=== PATIENT | male | born 1945 | race Caucasian/White ===

== ENCOUNTER 2019-05-02 16:01 | Emergency (ER) | payer MEDICARE, OTHER, SELFPAY ==
[2019-05-02] VITALS (10 sets, daily range): BP systolic 89–107; BP diastolic 59–72; PULSE 52–76; RESP 12–16; TEMP 36.7; O2SAT 90–99; BMI 28.8
--- NOTE | 2019-05-02 16:13 | ED_ITS ---
HPI - Chest Pain General: Chief Complaint: Chest Pain Stated Complaint: Chest Pain Time Seen by Provider: 05/02/19 16:12 PFSH ED PFSH: Statuses (acute, chronic, etc) shown below reflect problem list status as previously entered and may not be historically accurate Social History Smoking and tobacco status: former smoker Course Vital Signs: Vital signs: Vital Signs Temperature 98.0 F 05/02/19 15:52 Pulse Rate 63 05/02/19 16:04 Respiratory Rate 15 05/02/19 16:04 Blood Pressure 98/59 05/02/19 16:04 Pulse Oximetry 98 05/02/19 16:04 Coding Level of Care Code ED Physician/Allergy/Immunology for Luna Hoffman
--- NOTE | 2019-05-02 16:13 | ED_ITS ---
Entered by Kathie Humphreys, acting as scribe for HPI - Chest Pain General: Chief Complaint: Chest Pain Stated Complaint: Chest Pain Time Seen by Provider: 05/02/19 16:12 Source: patient, family and EMS Mode of arrival: EMS Limitations: physical limitation (difficulty walking that is chronic per spouse) History of Present Illness: HPI narrative: 74 yo male presents with chest pain. pt states this started 2-3 days ago. pt states he has a cardiac history so he wanted to get it checked out. pt denies any other symptoms at this time. pt seens Dr. Emmanuel the Cardiology in [facility] and Oncology also in [facility]. MD complaint: chest pain Onset (ago): day(s) (2 days ago) Timing of current episode: constant and still present Prior episodes: Yes Onset: during rest Pain location: substernal Pain radiation: none Severity: mild Relieving factors: nothing Exacerbating factors: nothing Associated symptoms: Reports no associated symptoms; Deny abdominal pain, dyspnea, fever(s), nausea or vomiting Treatment prior to arrival: none Review of Systems Const: Denies: fever, chills, body aches, fatigue, malaise or night sweats Eyes: Denies: change in vision or blurry vision ENMT: Denies: throat pain, oral sores/lesions, dental pain, nasal discharge or nasal congestion Resp: Denies: shortness of breath, productive cough, non-productive cough or wheezing GI: Denies: abdominal pain, nausea, vomiting, vomiting blood, coffee grounds in vomit, difficulty swallowing, heartburn/indigestion, diarrhea, constipation, cramping, blood in stool or black tarry stool : Denies: flank pain, difficulty urinating, painful urination, urinary frequency, urinary urgency, urinary incontinence or blood in urine Musc: Denies: neck pain, back pain, extremity pain, extremity swelling, joint pain or joint swelling Skin/Breast: Denies: rash, itching or redness Neuro: Denies: headache, numbness in extremities, weakness in extremities, changes in sensation, lack of coordination, difficulty walking, frequent falls, dizziness, vertigo or confusion Psych: Denies: anxiety, depression, loss of interest, visual hallucinations, auditory hallucinations, suicidal ideation or homicidal ideation Endo: Denies: excessive urination, excessive thirst, tired all the time or cold intolerance Mynor/Lymph: Denies: easy bruising, easy bleeding, petechiae, enlarged lymph nodes or tender lymph nodes PFSH ED PFSH: Statuses (acute, chronic, etc) shown below reflect problem list status as previously entered and may not be historically accurate Social History Smoking and tobacco status: former smoker Physical Exam Const: COMMON NORMALS: average body habitus, oriented x3 and alert GENERAL APPEARANCE: cooperative, comfortable, well kempt and well developed NUTRITIONAL APPEARANCE: obese ORIENTATION/CONSCIOUSNESS: Yes awake, Yes oriented to person and Yes oriented to place HENMT: COMMON NORMALS: normocephalic, head/scalp atraumatic, EAC's normal, TM's normal bilaterally, external nose normal, moist oral mucous membranes and oropharynx normal HEAD & SCALP: normocephalic and atraumatic NOSE: external nose normal EXTERNAL AUDITORY CANAL: EAC's normal TYMPANIC MEMBRANE: TM's normal bilaterally MOUTH: oral and palatal mucosa normal, lip normal and tongue normal THROAT: posterior oropharynx normal and tonsils normal Eye: COMMON NORMALS: PERRL, EOMs intact bilaterally, conjunctivae normal and no scleral icterus CONJUNCTIVA: Yes conjunctivae normal PUPIL: Yes PERRL Neck/C-Spine: COMMON NORMALS: full ROM, no lymphadenopathy, supple, no meningeal signs and thyroid normal THYROID: thyroid normal and asymmetrical Lymph: LYMPHATIC: no lymphadenopathy noted Resp: COMMON NORMALS: normal respiratory effort, no retractions, no use of accessory muscles and clear to auscultation bilaterally AUSCULTATION: clear to auscultation bilaterally GI: COMMON NORMALS: normal to inspection, nondistended, normoactive bowel sounds, soft to palpation and no hepatosplenomegaly PALPATION: Yes soft and Yes no hepatosplenomegaly : COMMON NORMALS: Yes no CVA tenderness BLADDER/KIDNEY EXAM: Yes no CVA tenderness Back/Pelvis: COMMON NORMALS: no CVA tenderness LUMBAR SPINE/LOWER BACK: Yes normal to inspection Extremity: COMMON NORMALS: no clubbing, cyanosis or edema, no calf tenderness and no pedal edema Neuro: COMMON NORMALS: oriented x3 SENSORIUM/ORIENTATION: Yes alert, Yes oriented to person and Yes oriented to place MENINGEAL SIGNS: Yes no meningeal signs Psych: APPEARANCE: Yes well kempt Skin: COMMON NORMALS: no rashes or lesions noted and skin turgor normal GENERAL SKIN EXAM: no rashes or lesions noted and turgor normal Course ED course: Transferred to [place] for continuity of care. Additionally there is no available beds at our facility. Discussed with patient they will receive the patient in the emergency room at [facility]. Patient transferred due to lack of beds here and for continuity of care he does have a troponin greater than 100 in the setting of patient with known coronary artery disease and this must be further evaluated. Vital Signs: Vital signs: Vital Signs Temperature 98.0 F 05/02/19 15:52 Pulse Rate 52 L 05/02/19 23:00 Respiratory Rate 12 05/02/19 23:00 Blood Pressure 107/69 05/02/19 23:00 Pulse Oximetry 99 05/02/19 23:00 MDM - Chest Pain Lab Data: Attestation: I reviewed the patient's lab results. Labs: Lab Results 05/02/19 05/02/19 05/02/19 Range/Units 16:45 16:45 16:45 WBC 5.9 (4.0-10.0) 10^3/ uL RBC 3.84 L (4.1-5.3) 10^6/u L Hgb 12.0 (11.7-16.6) g/dL Hct 38.1 L (42.0-52.0) % MCV 99.2 H (80-94) fL MCH 31.3 (28.0-34.0) pg MCHC 31.5 (30.0-36.0) g/dL RDW 16.5 H (12.1-15.1) % Plt Count 90 L (130-400) 10^3/c mm MPV 10.7 H (7.4-10.4) fL Neut % (Auto) 42.4 % Lymph % (Auto) 45.3 % [place] % (Auto) 5.0 % Eos % (Auto) 5.5 % Baso % (Auto) 1.5 % Neut # (Auto) 2.5 (1.8-7.7) 10^3/u L Lymph # (Auto) 2.7 (0.8-4.8) 10^3/u L [place] # (Auto) 0.3 (0.2-0.9) 10^3/u L Eos # (Auto) 0.3 (0.0-0.8) 10^3/u L Baso # (Auto) 0.1 (0.0-0.1) 10^3/u L Nucleated RBC % (a uto) 0 % Nucleated RBCs # 0.0 /100WBC PT 17.90 H (10.5-13.3) SECO NDS INR 1.43 H (0.8-1.2) APTT 41.5 H (23.9-36.7) SECO NDS Sodium 136 (136-145) mmol/L Potassium 3.8 (3.5-5.1) mmol/L Chloride 99 (98-107) mmol/L Carbon Dioxide 27 (22-29) mmol/L Anion Gap 13.8 (5-19) BUN 22 (8-23) mg/dL Creatinine 2.6 H (0.7-1.2) mg/dL Glucose 124 H (65-115) mg/dL Lactic Acid (Sepsi s) (0.5-2.2) mmol/L Calcium 9.7 (8.5-10.5) mg/dL Total Bilirubin 0.6 (0.15-1.2) mg/dL AST 26 (0-40) U/L ALT 12 (0-41) U/L Alkaline Phosphata se 104 (40-130) IU/L Troponin I 6 Hour (0-15) ng/L Troponin I Hi Sens Del (0-12) ng/L Troponin T Baselin e (0-15) ng/mL Troponin T 120 Min wrangell (0-15) ng/mL Delta Troponin T (0-10) ABS# Total Protein 6.1 L (6.6-8.7) g/dL Albumin 3.6 (3.5-5.2) g/dL Globulin 2.5 (1.3-4.6) g/dL Urine Color (Yellow) Urine Appearance (CLEAR) Urine pH (5-7) Ur Specific Gravit y (1.005-1.030) Urine Protein (Negative) Urine Glucose (UA) (Normal) Urine Ketones (Negative) Urine Occult Blood (Negative) Urine Nitrate (Negative) Urine Bilirubin (NEGATIVE) Urine Urobilinogen (Negative) mg/dL Ur Leukocyte Esperanza ase (Negative) 05/02/19 05/02/19 05/02/19 Range/Units 16:45 16:58 19:05 WBC (4.0-10.0) 10^3/ uL RBC (4.1-5.3) 10^6/u L Hgb (11.7-16.6) g/dL Hct (42.0-52.0) % MCV (80-94) fL MCH (28.0-34.0) pg MCHC (30.0-36.0) g/dL RDW (12.1-15.1) % Plt Count (130-400) 10^3/c mm MPV (7.4-10.4) fL Neut % (Auto) % Lymph % (Auto) % [place] % (Auto) % Eos % (Auto) % Baso % (Auto) % Neut # (Auto) (1.8-7.7) 10^3/u L Lymph # (Auto) (0.8-4.8) 10^3/u L [place] # (Auto) (0.2-0.9) 10^3/u L Eos # (Auto) (0.0-0.8) 10^3/u L Baso # (Auto) (0.0-0.1) 10^3/u L Nucleated RBC % (a uto) % Nucleated RBCs # /100WBC PT (10.5-13.3) SECO NDS INR (0.8-1.2) APTT (23.9-36.7) SECO NDS Sodium (136-145) mmol/L Potassium (3.5-5.1) mmol/L Chloride (98-107) mmol/L Carbon Dioxide (22-29) mmol/L Anion Gap (5-19) BUN (8-23) mg/dL Creatinine (0.7-1.2) mg/dL Glucose (65-115) mg/dL Lactic Acid (Sepsi s) (0.5-2.2) mmol/L Calcium (8.5-10.5) mg/dL Total Bilirubin (0.15-1.2) mg/dL AST (0-40) U/L ALT (0-41) U/L Alkaline Phosphata se (40-130) IU/L Troponin I 6 Hour (0-15) ng/L Troponin I Hi Sens Del (0-12) ng/L Troponin T Baselin e 126 H* (0-15) ng/mL Troponin T 120 Min wrangell 103.70 H (0-15) ng/mL Delta Troponin T -22.30 L (0-10) ABS# Total Protein (6.6-8.7) g/dL Albumin (3.5-5.2) g/dL Globulin (1.3-4.6) g/dL Urine Color Yellow (Yellow) Urine Appearance Clear (CLEAR) Urine pH 6 (5-7) Ur Specific Gravit y 1.010 (1.005-1.030) Urine Protein Neg (Negative) Urine Glucose (UA) Norm (Normal) Urine Ketones Negative (Negative) Urine Occult Blood Neg (Negative) Urine Nitrate Negative (Negative) Urine Bilirubin Neg (NEGATIVE) Urine Urobilinogen Norm (Negative) mg/dL Ur Leukocyte Esperanza ase Negative (Negative) 05/02/19 05/02/19 Range/Units 20:46 22:57 WBC (4.0-10.0) 10^3/ uL RBC (4.1-5.3) 10^6/u L Hgb (11.7-16.6) g/dL Hct (42.0-52.0) % MCV (80-94) fL MCH (28.0-34.0) pg MCHC (30.0-36.0) g/dL RDW (12.1-15.1) % Plt Count (130-400) 10^3/c mm MPV (7.4-10.4) fL Neut % (Auto) % Lymph % (Auto) % [place] % (Auto) % Eos % (Auto) % Baso % (Auto) % Neut # (Auto) (1.8-7.7) 10^3/u L Lymph # (Auto) (0.8-4.8) 10^3/u L [place] # (Auto) (0.2-0.9) 10^3/u L Eos # (Auto) (0.0-0.8) 10^3/u L Baso # (Auto) (0.0-0.1) 10^3/u L Nucleated RBC % (a uto) % Nucleated RBCs # /100WBC PT (10.5-13.3) SECO NDS INR (0.8-1.2) APTT (23.9-36.7) SECO NDS Sodium (136-145) mmol/L Potassium (3.5-5.1) mmol/L Chloride (98-107) mmol/L Carbon Dioxide (22-29) mmol/L Anion Gap (5-19) BUN (8-23) mg/dL Creatinine (0.7-1.2) mg/dL Glucose (65-115) mg/dL Lactic Acid (Sepsi s) 1.1 (0.5-2.2) mmol/L Calcium (8.5-10.5) mg/dL Total Bilirubin (0.15-1.2) mg/dL AST (0-40) U/L ALT (0-41) U/L Alkaline Phosphata se (40-130) IU/L Troponin I 6 Hour 111.5 H (0-15) ng/L Troponin I Hi Sens Del -14.5 L (0-12) ng/L Troponin T Baselin e (0-15) ng/mL Troponin T 120 Min wrangell (0-15) ng/mL Delta Troponin T (0-10) ABS# Total Protein (6.6-8.7) g/dL Albumin (3.5-5.2) g/dL Globulin (1.3-4.6) g/dL Urine Color (Yellow) Urine Appearance (CLEAR) Urine pH (5-7) Ur Specific Gravit y (1.005-1.030) Urine Protein (Negative) Urine Glucose (UA) (Normal) Urine Ketones (Negative) Urine Occult Blood (Negative) Urine Nitrate (Negative) Urine Bilirubin (NEGATIVE) Urine Urobilinogen (Negative) mg/dL Ur Leukocyte Esperanza ase (Negative) Discharge Plan Discharge Patient Disposition: Transfer to ED Clinical Impression: Non-ST elevation [place] (NSTEMI), Coronary artery disease Interventions: ED Discharge Assessment Last Done: 05/02/19 23:43 Discharge Date/Time: 05/02/19 23:44 Coding Level of Care Code ED Physicist Astrophysics for Chg Fwd Exam Problem Focused The documentation recorded by the Petr garcia Bridget Annette, accurately reflects the service I personally performed and the decisions made by Wili burris Curtis L,
--- NOTE | 2019-05-02 16:31 | CTR_ITS ---
PROCEDURE INFORMATION: Exam: CT Head Without Contrast Exam date and time: 05/02/2019 5:38 PM Age: 74 years old Clinical indication: Dizziness; Patient HX: HX lung cancer TECHNIQUE: Imaging protocol: Computed tomography of the head without contrast. Total DLP: 850.82 mGy-cm Radiation optimization: All CT scans at this facility use at least one of these dose optimization techniques: automated exposure control; mA and/or kV adjustment per patient size (includes targeted exams where dose is matched to clinical indication); or iterative reconstruction. COMPARISON: CT head wo con* [id number] 11/09/2016 8:21 PM FINDINGS: Brain: No CT evidence for acute ischemia, mass or hemorrhage. Generalized atrophy has increased since 2017. Ventricles: ex vacuo dilatation. Bones/joints: Unremarkable. No acute fracture. Sinuses: Chronic mucosal disease and fluid in the left sphenoid sinus. New, patchy fluid in the right ethmoid sinuses. Mastoid air cells: Patchy fluid in the left mastoid sinus. Soft tissues: Unremarkable. Vasculature: Severe intracranial atherosclerosis especially the distal left vertebral artery and in both distal internal carotid arteries. CT/CT head wo con* [id number] IMPRESSION: 1. No acute intracranial findings. 2. Increased atrophy since 2017. 3. Severe intracranial atherosclerosis. 4. Sinus mucosal disease Radiation Dose CTDIVOL = (mGy): DLP = 850.82 (mGy-cm)
--- NOTE | 2019-05-02 16:31 | ECG_ITS ---
Measurements Intervals [place] Rate: 71 P: OR: 0 QRS: 112 QRSD: 117 T: -61 QT: 431 QTc: 468 ATRIAL FIBRILLATION WITH ABERRANT CONDUCTION OR VENTRICULAR PREMATURE COMPLEXES POSSIBLE RIGHT VENTRICULAR HYPERTROPHY [SOME/ALL OF: PROMINENT R IN V1, LATE REVELES TRANSITION, RAD, JUVENAL, SSS] ANTEROLATERAL MYOCARDIAL INFARCTION , OF INDETERMINATE AGE [40+ ms Q WAVE IN I/a I/aVL/V3-V6] MODERATE T-WAVE ABNORMALITY, CONSIDER INFERIOR ISCHEMIA [-0.1+ mV T WAVE IN II II/aVF] Compared to ECG 07/30/2018 22:45:48 Ventricular premature complex(es) now present Aberrant conduction of supraventricular beat(s) now present T-wave abnormality now present Possible ischemia now present Electronically Signed On 05-02-2019 17:29:48 IC DESIGN ENGINEER by Sagar Lamas M.D. [email or web address]
--- NOTE | 2019-05-02 16:31 | XR_ITS ---
WS: [id number] PORTABLE CHEST HISTORY: dyspnea COMPARISON: 07/30/2018 LEFT subclavian defibrillator and prior median sternotomy. Right-sided central line with tip in the d istal SVC. Mild volume loss in the RIGHT thorax. Pleural-parenchymal scarring with tenting of the diaphragm. Enzo ateral areas of increasing opacification and fibrosis are similar to the prior study. Superimposed mi ld pulmonary edema would easily be obscured with this amount of chronic interstitial disease. No pneu mothorax. Cardiac size: Moderately enlarged cardiac silhouette. Mediastinum/Aorta: Moderate atherosclerosis aorta. Partial resection of a posterior RIGHT rib. XR/XR chest 1V portable [id number] IMPRESSION: 1. Chronic interstitial fibrotic changes and volume loss and postsurgical nickerson ges in the RIGHT lung. No acute interval change is appreciated. 2. RIGHT central line with tip in the distal SVC.
[2019-05-02] MEDS: sodium chloride 0.9% 1,000 ML 999 ML IV (16:39)
[2019-05-02 16:58] LABS: Basophils # 0.1 10^3/uL (0.0-0.1); Basophils % 1.5 %; Eosinophils # 0.3 10^3/uL (0.0-0.8); Eosinophils % 5.5 %; Hematocrit 38.1 % (42.0-52.0); Lymphocytes # 2.7 10^3/uL (0.8-4.8); Lymphocytes % 45.3 %; Mean Corpuscular HGB Conc 31.5 g/dL (30.0-36.0); Mean Corpuscular Hemoglobin 31.3 pg (28.0-34.0); Mean Corpuscular Volume 99.2 fL (80-94); Mean Platelet Volume 10.7 fL (7.4-10.4); Monocytes # 0.3 10^3/uL (0.2-0.9); Neutrophils # 2.5 10^3/uL (1.8-7.7); Neutrophils % 42.4 %; Nucleated Red Blood Cells % 0 %; Platelet Count 90 10^3/cmm (130-400); Red Blood Count 3.84 10^6/uL (4.1-5.3); Red Cell Distribution Width 16.5 % (12.1-15.1); White Blood Count 5.9 10^3/uL (4.0-10.0)
[2019-05-02 17:00] LABS: INR 1.43 (0.8-1.2)
[2019-05-02 17:01] LABS: Partial Thromboplastin Time 41.5 SECONDS (23.9-36.7)
[2019-05-02 17:10] LABS: Alanine Aminotransferase 12 U/L (0-41); Albumin Level 3.6 g/dL (3.5-5.2); Alkaline Phosphatase 104 IU/L (40-130); Anion Gap 13.8 (5-19); Aspartate Amino Transferase 26 U/L (0-40); Blood Urea Nitrogen 22 mg/dL (8-23); Calcium 9.7 mg/dL (8.5-10.5); Carbon Dioxide 27 mmol/L (22-29); Chloride 99 mmol/L (98-107); Globulin 2.5 g/dL (1.3-4.6); Glucose 124 mg/dL (65-115); Potassium 3.8 mmol/L (3.5-5.1); Sodium 136 mmol/L (136-145); Total Bilirubin 0.6 mg/dL (0.15-1.2); Total Protein 6.1 g/dL (6.6-8.7)
[2019-05-02 17:20] LABS: Troponin(5th) Baseline 126 ng/mL (0-15)
[2019-05-02 17:23] LABS: Add Urine Microscopic? NO
[2019-05-02 17:43] LABS: Bilirubin Urine Neg (NEGATIVE); Blood Urine Neg (Negative); Glucose Urine UA Norm (Normal); Ketones Urine Negative (Negative); Leukocyte Esterase Urine Negative (Negative); Nitrate Urine Negative (Negative); Protein Urine Neg (Negative); Urine Appearance Clear (CLEAR); Urine Color Yellow (Yellow); Urobilinogen Urine Norm (Negative); pH Urine 6 (5-7)
--- NOTE | 2019-05-02 18:31 | ECG_ITS ---
Measurements Intervals [place] Rate: 54 P: MT: 0 QRS: 110 QRSD: 116 T: -88 QT: 462 QTc: 442 SINUS BRADYCARDIA WITH occasional demand paced beat POSSIBLE RIGHT VENTRICULAR HYPERTROPHY [SOME/ALL OF: PROMINENT R IN V1, LATE TRANSITION, RAD, JUVENAL, SSS] ANTEROLATERAL MYOCARDIAL INFARCTION , OF INDETERMINATE AGE [40+ ms Q WAVE IN I/aVL/V3-V6] Compared to ECG 05/02/2019 16:03:10 Atrial fibrillation no longer present Ventricular premature complex(es) no longer present Aberrant conduction of supraventricular beat(s) no longer present T-wave abnormality no longer present Possible ischemia no longer present Myocardial infarct finding still present Electronically Signed On 05-03-2019 16:37:11 EN[employer] SPECIALISTS by Sagar Lamas M.D. [id number]
[2019-05-02] MEDS: sodium chloride 0.9% 500 ML 999 ML IV ×2 (18:37→21:18)
[2019-05-02] MEDS: enoxaparin 100 mg/mL Syringe 90 MG SUBCUT (18:38)
[2019-05-02] MEDS: nitroglycerin 1 gm/inch oint Pkt 1 INCH TOPICAL (18:39)
--- NOTE | 2019-05-02 19:06 | PC.NURSE ---
Introduced self to patient and initiated vital signs. Pt is A&O x 4 and agreeable. Pt states that the reason for the ER visit today is due to chest pain and dizziness.Reassured patient of needs and will continue to monitor. Noticed that BP was 89/64. Notified provider, liter of fluid ordered and administered.
--- NOTE | 2019-05-02 20:31 | PC.NURSE ---
Report called to Mir Castellanos at [facility].
[2019-05-02 21:03] LABS: Lactic Acid level (Lactate) 1.1 mmol/L (0.5-2.2)
--- NOTE | 2019-05-02 21:40 | PC.NURSE ---
Called to let her know that EMS will arrive in approximately 1 hour.
--- NOTE | 2019-05-02 22:31 | ECG_ITS ---
Measurements Intervals [place] Rate: 63 P: MD: 0 QRS: 111 QRSD: 134 T: -79 QT: 449 QTc: 460 ATRIAL FIBRILLATION INTRAVENTRICULAR CONDUCTION DELAY [130+ ms QRS DURATION] POSSIBLE RIGHT VENTRICULAR HYPERTROPHY [SOME/ALL OF: PROMINENT R IN V1, LATE TRANSITION, RAD, JUVENAL, SSS] ANTEROSEPTAL MYOCARDIAL INFARCTION [40+ ms Q WAVE IN V1-V4], OF INDETERMINATE AGE Compared to ECG 05/02/2019 16:03:10 Intraventricular conduction delay now present Ventricular premature complex(es) no longer present Aberrant conduction of supraventricular beat(s) no longer present T-wave abnormality no longer present Possible ischemia no longer present Myocardial infarct finding still present Electronically Signed On 05-03-2019 16:34:50 CUSTOMER SUPPORT ASSISTANT by Sagar Lamas M.D. [id number]
[2019-05-02 23:28] LABS: Troponin 5 6HR 111.5 ng/L (0-15); Troponin 5 6HR Delta -14.5 ng/L (0-12)
--- NOTE | 2019-05-02 23:32 | PC.NURSE ---
EMS assuming care of patient.
== END 2019-05-02 23:44 ==
PROVIDERS: Emergency Medicine; Emergency Provider Family Medicine
DX: I21.4 Non-ST elevation (NSTEMI) myocardial infarction (principal); I25.10 Atherosclerotic heart disease of native coronary artery without angina pectoris; Z87.891 Personal history of nicotine dependence
CPT/HCPCS: 36415; 70450; 71045; 80053; 81003; 83605; 84484; 85025; 85610; 85730; 93005; 96360; 96361; 96372; 99283; 99285; J1650; J7030; J7040